=== PATIENT | male | born 1980 | race Caucasian/White ===

== ENCOUNTER 2020-05-01 17:36 | Emergency (ER) | payer OTHER ==
[2020-05-01] MEDS ORDERED: Acetaminophen 325 MG Tab PO PRN (18:35)
--- NOTE | 2020-05-01 18:47 | EDM.PDOC ---
ED HPI GENERAL MEDICAL PROBLEM - General Chief Complaint: General Stated Complaint: COVID SYMPTOMS Time Seen by Provider: 05/01/20 18:21 Source of Information: Reports: Patient, Old Records, RN Notes Reviewed History Limitations: Reports: No Limitations - History of Present Illness INITIAL COMMENTS - FREE TEXT/NARRATIVE: 40-year-old gentleman presents emergency department a complaint of shortness of breath, he states he has been having difficulty breathing for the last 5days complains of sore throat a little bit of cough nasal congestion was initially evaluated [facility] Covid test is pending, subsequently evaluated walk-in clinic today at [facility] chest x-ray done at the time consistent with lingular pneumonia started on doxycycline. No lab work was done, he has had fevers at home as well Headache Pain Score (Numeric/FACES): 3 - Related Data Allergies Allergy/AdvReac Type Severity Reaction Status Date / Time No Known Allergies Allergy Verified 05/01/20 17:53 Home Meds: Home Meds Doxycycline Monohydrate 100 mg PO BID 05/01/20 [History] Lisdexamfetamine [Vyvanse] 50 mg PO DAILY 05/01/20 [History] Sertraline HCl [Zoloft] 50 mg PO DAILY 05/01/20 [History] buPROPion [Wellbutrin] 100 mg PO DAILY 05/01/20 [History] Past Medical History Psychiatric History: Reports: ADHD, Autism, Depression - Infectious Disease History Infectious Disease History: Reports: Chicken Pox Social & Family History - Tobacco Use Tobacco Use Status *Q: Never Tobacco User - Caffeine Use Caffeine Use: Reports: None - Recreational Drug Use Recreational Drug Use: No ED ROS GENERAL - Review of Systems Review Of Systems: See Below Constitutional: Reports: Fever, Chills, Weakness HEENT: Reports: No Symptoms Respiratory: Reports: Shortness of Breath, Cough, Sputum Cardiovascular: Reports: Dyspnea on Exertion GI/Abdominal: Reports: No Symptoms : Reports: No Symptoms Musculoskeletal: Reports: No Symptoms ED EXAM, GENERAL - Physical Exam Exam: See Below Exam Limited By: No Limitations General Appearance: Alert, WD/WN, No Apparent Distress Respiratory/Chest: No Respiratory Distress, Lungs Clear, Normal Breath Sounds, No Accessory Muscle Use, Chest Non-Tender Cardiovascular: No Murmur, Tachycardia GI/Abdominal: Soft, Non-Tender Course - Vital Signs Last Recorded V/S: Last Vital Signs Temp 101.4 F H 05/01/20 19:00 Pulse 125 H 05/01/20 17:44 Resp 18 05/01/20 17:44 BP 127/88 05/01/20 17:44 Pulse Ox 94 L 05/01/20 17:44 - Orders/Labs/Meds Orders: Active Orders 24 hr Category Date Time Status Acetaminophen [TylenoL] Med 05/01/20 18:35 Active 650 mg PO Q4H PRN Isolation [COMM] Routine Oth 05/01/20 18:36 Ordered Isolation [COMM] Stat Oth 05/01/20 18:36 Ordered Medication Orders Acetaminophen (Tylenol) 650 mg PO Q4H PRN PRN Reason: Fever Greater Than 101 Last Admin: 05/01/20 19:00 Dose: 650 mg Documented by: MARIO Labs: Laboratory Tests 05/01/20 05/01/20 05/01/20 Range/Units 18:45 18:59 18:59 WBC 8.6 (4.5-11.0) K/uL RBC 5.21 (4.30-5.90) M/uL Hgb 14.3 (12.0-15.0) g/dL Hct 42.1 (40.0-54.0) % MCV 81 (80-98) fL MCH 27 (27-31) pg MCHC 34 (32-36) % Plt Count 229 (150-400) K/uL Add Manual Diff Yes Neutrophils % (Manual) 72 H (36-66) % Band Neutrophils % 2 L (5-11) % Lymphocytes % (Manual) 7 L (24-44) % Monocytes % (Manual) 12 H (2-6) % Eosinophils % (Manual) 2 (2-4) % D-Dimer, Quantitative (0.0-400.0) ng/mL Sodium (140-148) mmol/L Potassium (3.6-5.2) mmol/L Chloride (100-108) mmol/L Carbon Dioxide (21-32) mmol/L Anion Gap (5.0-14.0) mmol/L BUN (7-18) mg/dL Creatinine (0.8-1.3) mg/dL Est Cr Clr Drug Dosing mL/min Estimated GFR (MDRD) (>60) Glucose (74-106) mg/dL Lactic Acid (0.4-2.0) mmol/L Calcium (8.5-10.1) mg/dL Ferritin 475 H (8-388) ng/ml Total Bilirubin (0.2-1.0) mg/dL Direct Bilirubin (0.0-0.2) mg/dL Indirect Bilirubin AST (15-37) U/L ALT (12-78) U/L Alkaline Phosphatase (46-116) U/L Lactate Dehydrogenase (85-227) U/L C-Reactive Protein (0.0-0.3) mg/dL Total Protein (6.4-8.2) g/dL Albumin (3.4-5.0) g/dL Globulin (2.3-3.5) g/dL Albumin/Globulin Ratio (1.2-2.2) Procalcitonin ng/mL SARS CoV-2 RNA Rapid KATT Negative 05/01/20 05/01/20 05/01/20 Range/Units 18:59 18:59 18:59 WBC (4.5-11.0) K/uL RBC (4.30-5.90) M/uL Hgb (12.0-15.0) g/dL Hct (40.0-54.0) % MCV (80-98) fL MCH (27-31) pg MCHC (32-36) % Plt Count (150-400) K/uL Add Manual Diff Neutrophils % (Manual) (36-66) % Band Neutrophils % (5-11) % Lymphocytes % (Manual) (24-44) % Monocytes % (Manual) (2-6) % Eosinophils % (Manual) (2-4) % D-Dimer, Quantitative 1120 H (0.0-400.0) ng/mL Sodium 129 L (140-148) mmol/L Potassium 4.3 (3.6-5.2) mmol/L Chloride 96 L (100-108) mmol/L Carbon Dioxide 26 (21-32) mmol/L Anion Gap 11.3 (5.0-14.0) mmol/L BUN 20 H (7-18) mg/dL Creatinine 1.2 (0.8-1.3) mg/dL Est Cr Clr Drug Dosing 84.49 mL/min Estimated GFR (MDRD) > 60 (>60) Glucose 121 H (74-106) mg/dL Lactic Acid 1.1 (0.4-2.0) mmol/L Calcium 8.9 (8.5-10.1) mg/dL Ferritin (8-388) ng/ml Total Bilirubin 0.2 (0.2-1.0) mg/dL Direct Bilirubin 0.19 (0.0-0.2) mg/dL Indirect Bilirubin 0.01 AST 31 (15-37) U/L ALT 62 (12-78) U/L Alkaline Phosphatase 92 (46-116) U/L Lactate Dehydrogenase 187 (85-227) U/L C-Reactive Protein 16.25 H (0.0-0.3) mg/dL Total Protein 7.2 (6.4-8.2) g/dL Albumin 3.3 L (3.4-5.0) g/dL Globulin 3.9 H (2.3-3.5) g/dL Albumin/Globulin Ratio 0.9 L (1.2-2.2) Procalcitonin ng/mL SARS CoV-2 RNA Rapid KATT 05/01/20 Range/Units 18:59 WBC (4.5-11.0) K/uL RBC (4.30-5.90) M/uL Hgb (12.0-15.0) g/dL Hct (40.0-54.0) % MCV (80-98) fL MCH (27-31) pg MCHC (32-36) % Plt Count (150-400) K/uL Add Manual Diff Neutrophils % (Manual) (36-66) % Band Neutrophils % (5-11) % Lymphocytes % (Manual) (24-44) % Monocytes % (Manual) (2-6) % Eosinophils % (Manual) (2-4) % D-Dimer, Quantitative (0.0-400.0) ng/mL Sodium (140-148) mmol/L Potassium (3.6-5.2) mmol/L Chloride (100-108) mmol/L Carbon Dioxide (21-32) mmol/L Anion Gap (5.0-14.0) mmol/L BUN (7-18) mg/dL Creatinine (0.8-1.3) mg/dL Est Cr Clr Drug Dosing mL/min Estimated GFR (MDRD) (>60) Glucose (74-106) mg/dL Lactic Acid (0.4-2.0) mmol/L Calcium (8.5-10.1) mg/dL Ferritin (8-388) ng/ml Total Bilirubin (0.2-1.0) mg/dL Direct Bilirubin (0.0-0.2) mg/dL Indirect Bilirubin AST (15-37) U/L ALT (12-78) U/L Alkaline Phosphatase (46-116) U/L Lactate Dehydrogenase (85-227) U/L C-Reactive Protein (0.0-0.3) mg/dL Total Protein (6.4-8.2) g/dL Albumin (3.4-5.0) g/dL Globulin (2.3-3.5) g/dL Albumin/Globulin Ratio (1.2-2.2) Procalcitonin 0.15 ng/mL SARS CoV-2 RNA Rapid KATT Meds: Medications Generic Name Dose Route Start Last Admin Trade Name Freq PRN Reason Stop Dose Admin Acetaminophen 650 mg 05/01/20 18:35 05/01/20 19:00 Tylenol PO 650 mg Q4H PRN Administration Fever Greater Than 101 Departure - Departure Time of Disposition: 20:18 Disposition: Home, Self-Care 01 Condition: Fair Clinical Impression: Lingular pneumonia - Discharge Information Instructions: Community-Acquired Pneumonia, Adult, [id number] Referrals: PCP,None [Primary Care Provider] - Forms: ED Department Discharge Additional Instructions: Continues taking antibiotics already prescribed, use Tylenol or Motrin to help control fevers, please followup with your primary care provider in 3-5 days if not better, please call return to the emergency department with worsening of symptoms. Sepsis Event Note (ED) - Evaluation Sepsis Screening Result: Possible Sepsis Risk - Focused Exam Vital Signs: Vital Signs Temp Temp Pulse Resp BP Pulse Ox 05/01/20 19:00 101.4 F H 05/01/20 17:44 101.4 F H 125 H 18 127/88 94 L - My Orders Last 24 Hours: My Active Orders 05/01/20 18:35 Acetaminophen [TylenoL] 650 mg PO Q4H PRN 05/01/20 18:36 Isolation [COMM] Routine Isolation [COMM] Stat - Assessment/Plan Last 24 Hours: My Active Orders 05/01/20 18:35 Acetaminophen [TylenoL] 650 mg PO Q4H PRN 05/01/20 18:36 Isolation [COMM] Routine Isolation [COMM] Stat Plan: Assessment Acuity = acute Site and laterality = lingular pneumonia per chest x-ray done in the clinic earlier today Etiology = probable bacterial cause Manifestations = dyspnea, fever Location of injury = Home Lab values = CBC unremarkable D-dimer elevated 1120 of uncertain significance sodium low at 129 consistent hyponatremia lactic acid normal 1.1 CRP elevated 16.25 procalcitonin 0.15 Covid was negative Plan He already has started his antibiotics of doxycycline follow-up with his primary care in 3 to 5 days for further evaluation This note was dictated using [employer] voice recognition software please call with any questions on syntax or grammar.
== END 2020-05-01 20:25 | disposition home or self-care (01) ==
LOC: JP.ED 17:36
DX: J18.9 Pneumonia, unspecified organism (principal); F90.9 Attention-deficit hyperactivity disorder, unspecified type; F32.9 Major depressive disorder, single episode, unspecified; Z79.899 Other long term (current) drug therapy; Z20.828 Contact with and (suspected) exposure to other viral communicable diseases
CPT/HCPCS: 36415; 80048; 80076; 82728; 83605; 83615; 84145; 85025; 85379; 86140; 87635; 87804; 99283; A9270; U0002